=== PATIENT | male | born 1970 | race Two or more races ===

== ENCOUNTER 2023-01-17 09:50 | Emergency (ER) | payer OTHER ==
[~2023-01-17] VITALS: Ht 180.3 cm; Wt 88.9 kg
[~2023-01-17 09:50] MED LIST: LOSARTAN POTASS50 MG
[2023-01-17 14:27] LABS: HEMATOCRIT 46.5 % (39.0-48.0); HEMOGLOBIN 15.6 g/dL (13-16.00); MEAN CELL VOLUME 88.8 fL (80.0-100.00); MEAN CORPUSCULAR HEMOGLOBIN 29.8 pg (27.00-32.0); MEAN CORPUSCULAR HGB CONC 33.5 g/dl (32.0-36.0); PLATELET COUNT 284 K/uL (150-450); RED BLOOD COUNT 5.23 M/uL (4.00-6.00); RED CELL DISTRIBUTION WIDTH 15.1 % (11.5-14.5)
== END 2023-01-17 15:33 | disposition home or self-care (01) ==
LOC: ER 09:50
PROVIDERS: General Practice
DX: L03.113 Cellulitis of right upper limb (principal)